=== PATIENT | male | born 1960 | race African-American/Black ===

== ENCOUNTER 2017-11-21 12:40 | Emergency (ER) | payer OTHER ==
[2017-11-21 12:53] VITALS: TEMP 98.1; BMI 29.2
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
[2017-11-21 15:14] LABS: BASO % 0.6 % (0-2.0); HEMATOCRIT 39.9 % (35.4-49); HEMOGLOBIN 13.7 GM/dL (11.7-16.9); LYMPH % 24.9 % (8-40); MCH 30.7 pg (25.7-33.7); MCHC 34.4 g/dl (32.0-35.9); MEAN CELL VOLUME 89.2 fl (80-96); MONO % 8.7 % (3.8-10.2); NEUT % 57.8 % (42.8-82.8); PLATELET COUNT 262 K/MM3 (134-434); RBC 4.47 M/mm3 (4.00-5.60); RDW 14.2 % (11.9-15.9); WHITE BLOOD COUNT 6.7 K/mm3 (4.0-10.0)
[2017-11-21 16:09] LABS: ALBUMIN 3.8 g/dl (3.4-5.0); ANION GAP 6 (8-16); BLOOD UREA NITROGEN 14 mg/dL (7-18); CALCIUM 8.8 mg/dL (8.5-10.1); CHLORIDE 104 mmol/L (98-107); CO2 30 mmol/L (21-32); CREATININE 1.2 mg/dL (0.7-1.3); GLUCOSE,RANDOM 110 mg/dL (74-106); POTASSIUM 3.4 mmol/L (3.5-5.1); SGOT/AST 20 U/L (15-37); SGPT/ALT 22 U/L (12-78); SODIUM 140 mmol/L (136-145)
[2017-11-21 16:11] LABS: ALK PHOS 100 U/L (45-117); BILIRUBIN,TOTAL 0.4 mg/dL (0.2-1.0); TOT PROT 7.6 g/dl (6.4-8.2)
[2017-11-21 17:12] VITALS: BP 151/94; PULSE 72
--- NOTE | 2017-11-21 17:57 | EKG ---
Test Reason : Blood Pressure : / mmHG Vent. Rate : 070 BPM Atrial Rate : 070 BPM P-R Int : 188 ms QRS Dur : 096 ms QT Int : 412 ms P-R-T Axes : 061 -15 -01 degrees QTc Int : 444 ms NORMAL SINUS RHYTHM POSSIBLE LEFT ATRIAL ENLARGEMENT INCOMPLETE RIGHT BUNDLE BRANCH BLOCK NONSPECIFIC T WAVE ABNORMALITY ABNORMAL ECG Confirmed by MD SHRUTHI, FRANKI ([id number]) on 11/21/2017 5:57:24 PM Referred By: Confirmed By:FRANKI HAWKINS MD
== END 2017-11-21 17:12 | disposition home or self-care (01) ==
LOC: JER 12:40
DX: G40.909 Epilepsy, unspecified, not intractable, without status epilepticus (principal); I10 Essential (primary) hypertension; E78.00 Pure hypercholesterolemia, unspecified; R73.03 Prediabetes; J45.909 Unspecified asthma, uncomplicated; H54.40 Blindness, one eye, unspecified eye; Z87.820 Personal history of traumatic brain injury
CPT/HCPCS: 36415; 71046-TC-FY; 80053; 80185; 85025; 93005; 93010; 99281-25

== ENCOUNTER 2021-06-14 01:09 | Emergency (ER) | payer OTHER ==
[2021-06-14 01:45] VITALS: TEMP 98.1; BMI 38.3
[2021-06-14] MEDS ORDERED: ACETAMINOPHEN 500 MG TABLET (FP) PO ONE (01:55)
[2021-06-14] MEDS ORDERED: ACETAMINOPHEN 500 MG TABLET (FP) ONE (02:31)
[2021-06-14 03:35] VITALS: BP 152/91; PULSE 75
[2021-06-15 10:07] LABS: SARS-CoV-2 NAA Not Detected (Not Detected)
== END 2021-06-14 03:35 | disposition home or self-care (01) ==
LOC: JER 01:09
DX: I10 Essential (primary) hypertension (principal)
CPT/HCPCS: 93005; 93010; 99284-25; C9803; U0003; U0005

== ENCOUNTER 2024-12-06 10:48 | Inpatient (IN) | payer OTHER ==
[2024-12-06 11:44] VITALS: BMI 26.1
[2024-12-06] MEDS: LACTATED RINGERS SOLUTION 1000 ML INFUS.BAG IV ONE ×2 (12:29→14:23)
[2024-12-06] MEDS: ACETAMINOPHEN 1000 MG/100 ML BAG IVPB ONE (12:29)
[2024-12-06] MEDS ORDERED: ACETAMINOPHEN INJECTION 100 ML ONE (12:30)
[2024-12-06 12:34] LABS: ABSOLUTE IMMATURE GRANULOCYTES 0.09 x10^3/uL (0.0-0.031); BASOPHILS # 0.05 x10^3/uL (0.01-0.08); EOSINOPHIL % 1.4 % (0.8-7.0); EOSINOPHILS # 0.25 x10^3/uL (0.04-0.54); HEMATOCRIT 41.3 % (40.1-51.0); HEMOGLOBIN 13.9 g/dL (13.7-17.5); MCHC 33.7 g/dl (32.3-36.5); MEAN CELL VOLUME 86.4 fl (79.0-92.2); MEAN PLT VOLUME 10.3 fl (9.4-12.4); MONOCYTE # 1.07 x10^3/uL (0.30-0.82); MONOCYTE % 5.9 % (5.3-12.2); PLATELET COUNT 370 x10^3/uL (163-337); RDW 13.6 % (12.2-16.4)
[2024-12-06 12:42] LABS: INR 1.21 (0.83-1.09); PROTHROMBIN TIME (PATIENT) 13.2 SEC (9.7-13.0)
[2024-12-06 12:45] LABS: ACTIVATED PTT 27.8 SECONDS (25.2-36.5)
[2024-12-06 12:55] LABS: POTASSIUM 3.8 mmol/L (3.5-5.1)
[2024-12-06 12:57] LABS: BLOOD UREA NITROGEN 19.6 mg/dL (7-18); CALCIUM 11.8 mg/dL (8.5-10.1)
[2024-12-06 12:58] LABS: MAGNESIUM 1.4 mg/dL (1.8-2.4)
[2024-12-06 13:01] LABS: CREATININE 1.9 mg/dL (0.55-1.3)
[2024-12-06 13:02] LABS: BILIRUBIN,TOTAL 1.1 mg/dL (0.2-1)
[2024-12-06 13:03] LABS: TOT PROT 8.4 g/dl (6.4-8.2)
[2024-12-06 13:40] LABS: EPI CELLS 36 /uL (0-25.1); HYALINE CASTS 3 /uL (0-3.1); PH,URINE 5.5 (5.0-8.0); URINE APPEARANCE CLOUDY; URINE BACTERIA 29 /uL (0-1359); URINE BILIRUBIN NEGATIVE (NEGATIVE); URINE COLOR YELLOW; URINE GLUCOSE (UA) NEGATIVE (NEGATIVE); URINE KETONE 2+ (NEGATIVE); URINE LEUK ESTERASE NEGATIVE (NEGATIVE); URINE NITRITE NEGATIVE (NEGATIVE); URINE PROTEIN 3+ (NEGATIVE); URINE RBC 25 /uL (0-23.9); URINE UROBILINOGEN 0.2 mg/dL (0.2-1.0); URINE WBC 37 /uL (0-25.8)
[2024-12-06] MEDS ORDERED: MAGNESIUM SULFATE IN WATER 2 GM/50 ML IVPB IVPB ONE (14:17)
[2024-12-06] MEDS: MAGNESIUM SULF 50% (8.12 MEQ/2 ML-1 GM VIAL) IVPB ONE (14:21)
[2024-12-06] MEDS: SODIUM CHLORIDE 0.9% 500 ML INFUS.BAG IV ONE (14:33)
[2024-12-06] MEDS: LIDOCAINE 5% TOPICAL PATCH TP ONE (16:23)
[2024-12-06] MEDS ORDERED: LIDOCAINE 5% TOPICAL PATCH ONE (16:24)
[2024-12-06] MEDS: ACETAMINOPHEN 1000 MG/100 ML BAG IVPB PRN (19:08)
[2024-12-06] MEDS: LIDOCAINE PATCH REMOVAL MC SCH (21:35)
[2024-12-06] MEDS: HEPARIN NA (PORCINE) 5,000 UNITS/ML 1ML VIAL SQ SCH (21:35)
[2024-12-06] MEDS: SIMETHICONE 80 MG TAB.CHEW (FP) PO ONE (22:55)
[2024-12-06] MEDS: PHENYTOIN NA EXTENDED 100 MG CAPSULE (FP) PO SCH (22:55)
[2024-12-07 07:20] LABS: BASOPHILS # 0.03 x10^3/uL (0.01-0.08); EOSINOPHIL % 5.2 % (0.8-7.0); EOSINOPHILS # 0.47 x10^3/uL (0.04-0.54); HEMATOCRIT 36.4 % (40.1-51.0); HEMOGLOBIN 12.2 g/dL (13.7-17.5); MCHC 33.5 g/dl (32.3-36.5); MEAN CELL VOLUME 87.3 fl (79.0-92.2); MEAN PLT VOLUME 10.6 fl (9.4-12.4); MONOCYTE # 0.66 x10^3/uL (0.30-0.82); MONOCYTE % 7.2 % (5.3-12.2); PLATELET COUNT 339 x10^3/uL (163-337); RDW 13.9 % (12.2-16.4)
[2024-12-07 07:37] LABS: POTASSIUM 3.7 mmol/L (3.5-5.1)
[2024-12-07 07:42] LABS: ALBUMIN 3.3 g/dl (3.4-5.0); BLOOD UREA NITROGEN 19.7 mg/dL (7-18)
[2024-12-07 07:45] LABS: CREATININE 1.5 mg/dL (0.55-1.3)
[2024-12-07 07:46] LABS: BILIRUBIN,TOTAL 0.6 mg/dL (0.2-1); N-TERMINAL BNP 165.2 pg/ml (5-125); TOT PROT 6.9 g/dl (6.4-8.2)
[2024-12-07 08:05] LABS: CALCIUM 9.9 mg/dL (8.5-10.1)
[2024-12-07] MEDS: PANTOPRAZOLE 40 MG TABLET PO SCH (12:27)
[2024-12-07] MEDS: RIVAROXABAN 20 MG TABLET PO SCH (21:15)
[2024-12-07] MEDS: DEXTROSE 5%-0.45% SALINE 1,000 ML IV SCH (23:03)
[2024-12-08 06:26] LABS: ABSOLUTE IMMATURE GRANULOCYTES 0.03 x10^3/uL (0.0-0.031); BASOPHILS # 0.04 x10^3/uL (0.01-0.08); EOSINOPHIL % 3.8 % (0.8-7.0); EOSINOPHILS # 0.36 x10^3/uL (0.04-0.54); HEMATOCRIT 38.2 % (40.1-51.0); HEMOGLOBIN 12.6 g/dL (13.7-17.5); MEAN CELL VOLUME 86.6 fl (79.0-92.2); MEAN PLT VOLUME 10.6 fl (9.4-12.4); MONOCYTE # 0.63 x10^3/uL (0.30-0.82); MONOCYTE % 6.7 % (5.3-12.2); PLATELET COUNT 338 x10^3/uL (163-337); RDW 13.7 % (12.2-16.4)
[2024-12-08 06:45] LABS: POTASSIUM 3.5 mmol/L (3.5-5.1)
[2024-12-08 06:51] LABS: CALCIUM 9.2 mg/dL (8.5-10.1)
[2024-12-08 06:52] LABS: ALBUMIN 3.2 g/dl (3.4-5.0)
[2024-12-08 06:55] LABS: CREATININE 1.3 mg/dL (0.55-1.3)
[2024-12-08 06:57] LABS: BILIRUBIN,TOTAL 0.5 mg/dL (0.2-1); TOT PROT 6.9 g/dl (6.4-8.2)
[2024-12-08] MEDS: LOSARTAN POTASSIUM 25 MG TABLET PO SCH (09:58)
[2024-12-08] MEDS: amLODIPine BESYLATE 2.5 MG TABLET (FP) PO SCH (09:59)
[2024-12-09] MEDS: ACETAMINOPHEN 1000 MG/100 ML BAG IVPB PRN (11:57)
[2024-12-09] MEDS: amLODIPine BESYLATE 5 MG TABLET (FP) PO ONE (16:18)
[2024-12-10 07:04] LABS: ABSOLUTE IMMATURE GRANULOCYTES 0.02 x10^3/uL (0.0-0.031); BASOPHILS # 0.04 x10^3/uL (0.01-0.08); EOSINOPHIL % 4.2 % (0.8-7.0); EOSINOPHILS # 0.42 x10^3/uL (0.04-0.54); HEMATOCRIT 38.3 % (40.1-51.0); HEMOGLOBIN 12.7 g/dL (13.7-17.5); MCHC 33.2 g/dl (32.3-36.5); MEAN CELL VOLUME 86.8 fl (79.0-92.2); MEAN PLT VOLUME 10.7 fl (9.4-12.4); MONOCYTE # 0.72 x10^3/uL (0.30-0.82); MONOCYTE % 7.3 % (5.3-12.2); PLATELET COUNT 365 x10^3/uL (163-337); RDW 14.1 % (12.2-16.4)
[2024-12-10 07:30] LABS: POTASSIUM 3.8 mmol/L (3.5-5.1)
[2024-12-10 07:34] LABS: ALBUMIN 3.5 g/dl (3.4-5.0); BLOOD UREA NITROGEN 13.6 mg/dL (7-18); CALCIUM 9.1 mg/dL (8.5-10.1)
[2024-12-10 07:36] LABS: CREATININE 1.2 mg/dL (0.55-1.3)
[2024-12-10 07:38] LABS: BILIRUBIN,TOTAL 0.5 mg/dL (0.2-1); TOT PROT 7.6 g/dl (6.4-8.2)
[2024-12-10] MEDS: amLODIPine BESYLATE 5 MG TABLET (FP) PO SCH (10:25)
[2024-12-10] MEDS: LOSARTAN POTASSIUM 50 MG TABLET PO SCH (10:25)
[2024-12-10] MEDS ORDERED: SENNOSIDES 8.6MG TABLET (FP) PO PRN (13:49)
[2024-12-10] MEDS: POLYETHYLENE GLYCOL (HEALTHYLAX) 3350 17 GM PACKET PO SCH (14:31)
[2024-12-10] MEDS: ACETAMINOPHEN 325 MG TABLET (FP) PO PRN (14:32)
[2024-12-10] MEDS: LOSARTAN POTASSIUM 50 MG TABLET PO ONE (15:08)
[2024-12-10] MEDS: INSULIN ASPART SLIDING SCALE (NOVOLOG) 1 VIAL SQ SCH (16:42)
[2024-12-10] MEDS: metFORMIN HCL 500 MG TABLET (FP) PO SCH (16:43)
[2024-12-10 17:44] LABS: MAGNESIUM 1.8 mg/dL (1.8-2.4)
[2024-12-10] MEDS: RIVAROXABAN 20 MG TABLET PO SCH (18:22)
[2024-12-11] MEDS: ACETAMINOPHEN 1000 MG/100 ML BAG IVPB ONE (03:35)
[2024-12-11] MEDS: MELATONIN 5 MG TABLETS PO PRN (03:59)
[2024-12-11 06:33] LABS: ABSOLUTE IMMATURE GRANULOCYTES 0.04 x10^3/uL (0.0-0.031); BASOPHILS # 0.05 x10^3/uL (0.01-0.08); EOSINOPHIL % 5.2 % (0.8-7.0); EOSINOPHILS # 0.47 x10^3/uL (0.04-0.54); HEMATOCRIT 37.4 % (40.1-51.0); HEMOGLOBIN 12.4 g/dL (13.7-17.5); MCHC 33.2 g/dl (32.3-36.5); MEAN CELL VOLUME 87.2 fl (79.0-92.2); MEAN PLT VOLUME 10.3 fl (9.4-12.4); MONOCYTE # 0.64 x10^3/uL (0.30-0.82); MONOCYTE % 7.1 % (5.3-12.2); PLATELET COUNT 340 x10^3/uL (163-337); RDW 14.4 % (12.2-16.4)
[2024-12-11 06:55] LABS: ALBUMIN 3.2 g/dl (3.4-5.0); BLOOD UREA NITROGEN 16.7 mg/dL (7-18)
[2024-12-11 06:58] LABS: CREATININE 1.4 mg/dL (0.55-1.3)
[2024-12-11 06:59] LABS: BILIRUBIN,TOTAL 0.4 mg/dL (0.2-1); TOT PROT 6.8 g/dl (6.4-8.2)
[2024-12-11] MEDS: LOSARTAN POTASSIUM 50 MG TABLET PO SCH (08:02)
[2024-12-11] MEDS ORDERED: REGADENOSON 0.4 MG/5 ML PRE-FILLED SYRINGE IVPUSH ONE (10:06)
[2024-12-11] MEDS: metoPROLOL SUCCINATE 25 MG TAB.SR.24H (FP) PO SCH (12:44)
[2024-12-11] MEDS: REGADENOSON 0.4 MG/5 ML PRE-FILLED SYRINGE IVPUSH ONE (17:55)
[2024-12-14] MEDS ORDERED: INSULIN ASPART SLIDING SCALE (NOVOLOG) 1 VIAL SQ ONE (06:21)
[2024-12-14 10:34] LABS: ABSOLUTE IMMATURE GRANULOCYTES 0.02 x10^3/uL (0.0-0.031); BASOPHILS # 0.05 x10^3/uL (0.01-0.08); EOSINOPHIL % 4.7 % (0.8-7.0); EOSINOPHILS # 0.38 x10^3/uL (0.04-0.54); HEMATOCRIT 40.9 % (40.1-51.0); HEMOGLOBIN 13.1 g/dL (13.7-17.5); MEAN CELL VOLUME 88.3 fl (79.0-92.2); MEAN PLT VOLUME 11.1 fl (9.4-12.4); MONOCYTE # 0.41 x10^3/uL (0.30-0.82); MONOCYTE % 5.1 % (5.3-12.2); PLATELET COUNT 344 x10^3/uL (163-337); RDW 14.4 % (12.2-16.4)
[2024-12-14 11:57] LABS: POTASSIUM 4.5 mmol/L (3.5-5.1)
[2024-12-14 12:05] LABS: ALBUMIN 3.5 g/dl (3.4-5.0); CALCIUM 10.1 mg/dL (8.5-10.1)
[2024-12-14 12:06] LABS: BLOOD UREA NITROGEN 22.4 mg/dL (7-18); CREATININE 1.4 mg/dL (0.55-1.3)
[2024-12-14 12:07] LABS: BILIRUBIN,TOTAL 0.3 mg/dL (0.2-1)
[2024-12-14 12:08] LABS: TOT PROT 7.8 g/dl (6.4-8.2)
[2024-12-16 00:05] VITALS: RESP 18
[2024-12-16] MEDS ORDERED: MELATONIN 5 MG TABLETS PO PRN (06:04)
[2024-12-16] MEDS ORDERED: ACETAMINOPHEN 325 MG TABLET (FP) PO PRN (06:04)
[2024-12-16] MEDS ORDERED: SENNOSIDES 8.6MG TABLET (FP) PO PRN (06:04)
[2024-12-16] MEDS: PANTOPRAZOLE 40 MG TABLET PO SCH (06:45)
[2024-12-16] MEDS: metFORMIN HCL 500 MG TABLET (FP) PO SCH (06:46)
[2024-12-16] MEDS: amLODIPine BESYLATE 5 MG TABLET (FP) PO SCH (09:40)
[2024-12-16] MEDS: PHENYTOIN NA EXTENDED 100 MG CAPSULE (FP) PO SCH (09:40)
[2024-12-16] MEDS: LOSARTAN POTASSIUM 50 MG TABLET PO SCH (09:40)
[2024-12-16] MEDS: POLYETHYLENE GLYCOL (HEALTHYLAX) 3350 17 GM PACKET PO SCH (09:40)
[2024-12-16] MEDS: metoPROLOL SUCCINATE 25 MG TAB.SR.24H (FP) PO SCH (09:40)
[2024-12-16] MEDS: INSULIN ASPART SLIDING SCALE (NOVOLOG) 1 VIAL SQ SCH (09:42)
[2024-12-16 14:22] VITALS: BP 124/78; PULSE 84; TEMP 98.1
[2024-12-16] MEDS ORDERED: RIVAROXABAN 20 MG TABLET PO SCH (18:00)
== END 2024-12-16 18:13 | DRG 53 ==
LOC: JER 10:48 → JERBED 15:39 → J4S 16:50 → J8W 12-16 05:44
PROVIDERS: ADMIT Internal Medicine; ATTEND Internal Medicine
DX: G40.909 Epilepsy, unspecified, not intractable, without status epilepticus (principal); I27.82 Chronic pulmonary embolism; N17.9 Acute kidney failure, unspecified; I82.509 Chronic embolism and thrombosis of unspecified deep veins of unspecified lower extremity; S22.42XA Multiple fractures of ribs, left side, initial encounter for closed fracture; D72.829 Elevated white blood cell count, unspecified; E11.9 Type 2 diabetes mellitus without complications; I10 Essential (primary) hypertension; R79.89 Other specified abnormal findings of blood chemistry; R80.9 Proteinuria, unspecified; W19.XXXA Unspecified fall, initial encounter; Y93.9 Activity, unspecified; Y92.89 Other specified places as the place of occurrence of the external cause; Y99.9 Unspecified external cause status
CPT/HCPCS: 0241U-QW; 36415; 70450-TC; 71045-TC-FY; 71275-TC; 74175-TC; 78452-TC; 80053; 80061; 80185; 81003; 82550; 82553; 82962; 83036; 83605; 83735; 83880; 84439; 84443; 84484; 85025; 85610; 85730; 87086; 87635; 93005; 93010; 93017; 93306-TC; 97116-GP; 97161-GP; 99285-25; A9502; J2785